=== PATIENT | female | born 1980 | race Caucasian/White ===

== ENCOUNTER 2018-02-03 09:21 | Emergency (ER) | payer MEDICAID ==
[~2018-02-03] VITALS: Ht 160 cm; Wt 81.0 kg
[2018-02-03 09:30] VITALS: BP 140/87
[2018-02-03] MEDS ORDERED: GUAI120015 PO (10:39)
[2018-02-03] MEDS ORDERED: ALB0.5UD IH (10:39)
[2018-02-03] MEDS ORDERED: ALBU6.7H INH (10:39)
[2018-02-03] MEDS ORDERED: PRED20TA PO (10:39)
== END 2018-02-03 11:49 | disposition home or self-care (01) ==
LOC: ER 09:22
DX: J22 Unspecified acute lower respiratory infection (principal); F17.200 Nicotine dependence, unspecified, uncomplicated; Z71.6 Tobacco abuse counseling; Z79.899 Other long term (current) drug therapy; Z88.5 Allergy status to narcotic agent
CPT/HCPCS: 99283